=== PATIENT | male | born 1975 | race Caucasian/White ===

== ENCOUNTER 2020-04-30 18:03 | Emergency (ER) | payer SELFPAY ==
[~2020-04-30] VITALS: Ht 182.9 cm; Wt 81.8 kg
[2020-04-30 19:42] VITALS: BP 115/65
[2020-04-30] MEDS ORDERED: AZITHROMYCIN 250 MG TABLET. PO ONE (20:00)
[2020-04-30] MEDS ORDERED: cefTRIAXone IM 250 MG VIAL IM ONE ×2 (20:00→20:18)
--- NOTE | 2020-04-30 20:13 | PHYS DOC ---
General Adult EDM: Chief Complaint: SEXUALLY TRANSMITTED DISEASE HPI: HPI: 44-year-old male that has a history of gonorrhea in the past presents with a urethral discharge today. He states is been going on for the last few days. He states he knows its gonorrhea. He requests treatment. He denies any fever chills or sweats. He does state that it [place] when he urinates. [] Review of Systems: Review of Systems: Constitutional: Denies fever or chills. [] Eyes: Denies change in visual acuity. [] HENT: Denies nasal congestion or sore throat. [] Respiratory: Denies cough or shortness of breath. [] Cardiovascular: Denies chest pain or edema. [] GI: Denies abdominal pain, nausea, vomiting, bloody stools or diarrhea. [] : Per HPI. [] Musculoskeletal: Denies back pain or joint pain. [] Integument: Denies rash. [] Neurologic: Denies headache, focal weakness or sensory changes. [] Endocrine: Denies polyuria or polydipsia. [] Lymphatic: Denies swollen glands. [] Psychiatric: Denies depression or anxiety. [] Heart Score: Risk Factors: Risk Factors: DM, Current or recent (<one month) smoker, HTN, HLP, family history of CAD, obesity. Risk Scores: Score 0 - 3: 2.5% MACE over next 6 weeks - Discharge Home Score 4 - 6: 20.3% MACE over next 6 weeks - Admit for Clinical Observation Score 7 - 10: 72.7% MACE over next 6 weeks - Early Invasive Strategies Current Medications: Current Medications Medications (Trade) Dose Ordered Sig/Jaye Start Time Stop Time Status Last Admin Dose Admin Azithromycin (Zithromax) 1,000 mg 1X ONCE 04/30/20 20:00 04/30/20 20:01 UNV Ceftriaxone Sodium (Rocephin Im) 250 mg 1X ONCE 04/30/20 20:00 04/30/20 20:01 UNV Physical Exam: PE: Constitutional: Well developed, well nourished, no acute distress, non-toxic appearance. [] HENT: Normocephalic, atraumatic, bilateral external ears normal, oropharynx moist, no oral exudates, nose normal. [] Eyes: PERRLA, EOMI, conjunctiva normal, no discharge. [] Neck: Normal range of motion, no tenderness, supple, no stridor. [] Cardiovascular:Heart rate regular rhythm, no murmur [] Lungs & Thorax: Bilateral breath sounds clear to auscultation [] Abdomen: Bowel sounds normal, soft, no tenderness, no masses, no pulsatile masses. [] : Urethral drainage Skin: Warm, dry, no erythema, no rash. [] Back: No tenderness, no CVA tenderness. [] Extremities: No tenderness, no cyanosis, no clubbing, ROM intact, no edema. [] Neurologic: Alert and oriented X 3, normal motor function, normal sensory function, no focal deficits noted. [] Psychologic: Affect normal, judgement normal, mood normal. [] EKG: EKG: [] Radiology/Procedures: Radiology/Procedures: [] Course & Med Decision Making: Course & Med Decision Making Pertinent Labs and Imaging studies reviewed. (See chart for details) [] Dragon Disclaimer: Dragon Disclaimer: This electronic medical record was generated, in whole or in part, using a voice recognition dictation system. Departure Departure Impression: Primary Impression: Urethritis, gonococcal, acute Disposition: HOME, SELF-CARE Condition: STABLE Referrals: NO PCP (PCP) Patient Instructions: Gonorrhea, Females and Males Additional Instructions: Return to the emergency department with any new or concerning symptoms Justicifation of Admission Dx: Justifications for Admission: Justification of Admission Dx: CHAU Colin DO Apr 30, 2020 20:13
[2020-04-30] MEDS ORDERED: AZITHROMYCIN 250 MG TABLET. ONE (20:18)
== END 2020-04-30 20:27 | disposition home or self-care (01) ==
LOC: ER 18:03
DX: N34.2 Other urethritis (principal); R36.9 Urethral discharge, unspecified
CPT/HCPCS: 87491; 87591; 96372; 99283; J0696